=== PATIENT | female | born 1980 | race African-American/Black ===

== ENCOUNTER 2017-03-29 22:00 | Emergency (ER) | payer OTHER ==
[~2017-03-29] VITALS: Ht 167.6 cm; Wt 136.1 kg
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
[2017-03-30 00:01] LABS: CALCIUM 9.1 mg/dL (8.5-10.1); CREATININE 0.8 mg/dL (0.6-1.0); GFR 96.6; POTASSIUM 3.6 mmol/L (3.5-5.1)
[2017-03-30] MEDS ORDERED: IOHEXOL 300 MG/ML 75 ML VIAL IV ONE (00:30)
[2017-03-30] MEDS ORDERED: CONTRAST GIVEN MC PRN (00:30)
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
[2017-03-30] MEDS ORDERED: DIAZ5TAB PO (03:09)
[2017-03-30] MEDS ORDERED: IBUP-1060 PO (03:09)
[2017-03-30 03:16] VITALS: BP 128/67
[2017-03-30] MEDS ORDERED: KETOROLAC TROMETHAMINE 30 MG/ML INJ. IV ONE (03:30)
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
== END 2017-03-30 03:46 | disposition home or self-care (01) ==
LOC: ER 22:00
DX: S09.90XA Unspecified injury of head, initial encounter (principal); J45.909 Unspecified asthma, uncomplicated; R07.89 Other chest pain; R10.9 Unspecified abdominal pain; M25.561 Pain in right knee; M25.571 Pain in right ankle and joints of right foot; Z88.1 Allergy status to other antibiotic agents; Z88.7 Allergy status to serum and vaccine; V43.52XA Car driver injured in collision with other type car in traffic accident, initial encounter; Y93.89 Activity, other specified; Y92.411 Interstate highway as the place of occurrence of the external cause; Y99.8 Other external cause status
CPT/HCPCS: 36415; 70450; 71260; 72125; 73562; 73610; 74177; 80048; 81025; 96374; 99285; J1885; Q9967

== ENCOUNTER → 2017-04-25 | Outpatient (CLI) | payer OTHER ==
[2017-03-30 03:16] VITALS: BP 128/67
[~2017-04-25] MED LIST: DIAZ5TAB PO; IBUP-1060 PO
--- NOTE | 2017-04-25 11:59 | RAD ---
DATE: 04/25/2017 EXAM: DIGITAL SCREEN BILAT W/CAD HISTORY: 37-year-old female for routine screening. COMPARISON: 2016 and 2015 mammograms. This study was interpreted with the benefit of Computerized Aided Detection (CAD). The breast parenchyma shows scattered fibroglandular densities. Breast parenchyma level B. FINDINGS: Benign bilateral calcifications. Stable Right breast nodular densities some of them showing reniform morphology dating back to 2014 likely intraparenchymal lymph nodes. No suspicious calcifications, spiculated mass or areas of architectural distortion. IMPRESSION: No suspicious findings. BI-RADS CATEGORY: 2 BENIGN FINDING(S) RECOMMENDED FOLLOW-UP: 12M 12 MONTH FOLLOW-UP PQRS compliance statement: Patient information was entered into a reminder system with a target due date 04/25/2018 for the next mammogram. Mammography is a sensitive method for finding small breast cancers, but it does not detect them all and is not a substitute for careful clinical examination. A negative mammogram does not negate a clinically suspicious finding and should not result in delay in biopsying a clinically suspicious abnormality. "Our facility is accredited by the [employer] Mammography Program."
== END | disposition home or self-care (01) ==
LOC: EDBD 04-18 08:30 → MAMMO 10:04
PROVIDERS: ATTEND Specialist
DX: Z12.31 Encounter for screening mammogram for malignant neoplasm of breast (principal)
CPT/HCPCS: G0202; 77067